=== PATIENT | female | born 1940 | race Hispanic/Latino ===

== ENCOUNTER 2018-06-09 17:43 | Emergency (ER) | payer OTHER, MEDICARE ==
[2018-06-09 17:58] VITALS: BMI 27.4
[2018-06-09] MEDS ORDERED: Bacitracin 500 Units/gm Oint Foilpak UD TOP STA (18:36)
[2018-06-09] MEDS ORDERED: Lidocaine 5% Patch TD STA (19:16)
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
--- NOTE | 2018-06-09 20:15 | CARD ---
APPROVED REPORT Date of service: 06/09/2018 EKG Measurement Heart [id number] <Conclusion> Normal sinus rhythm Nonspecific T wave abnormality Abnormal ECG
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
[2018-06-09 22:20] VITALS: TEMP 98.3
[2018-06-10 00:13] VITALS: BP 152/85; RESP 18; O2SAT 97
[2018-06-10 00:26] VITALS: PULSE 82
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
== END 2018-06-10 00:20 | disposition home or self-care (01) ==
LOC: ED 17:43
DX: S00.83XA Contusion of other part of head, initial encounter (principal); M54.2 Cervicalgia; V49.49XA Driver injured in collision with other motor vehicles in traffic accident, initial encounter; Y92.410 Unspecified street and highway as the place of occurrence of the external cause

== ENCOUNTER 2018-06-11 11:39 | Emergency (ER) | payer OTHER, MEDICARE ==
[2018-06-11 11:39] VITALS: BMI 27.4
[2018-06-11 12:05] VITALS: RESP 18; TEMP 97.6
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
[2018-06-11 14:28] VITALS: BP 143/70; PULSE 66; O2SAT 100
== END 2018-06-11 14:44 | disposition home or self-care (01) ==
LOC: ED 11:39
DX: L03.113 Cellulitis of right upper limb (principal); R73.03 Prediabetes